=== PATIENT | female | born 1990 ===

== ENCOUNTER 2021-04-26 15:00 | Inpatient (IN) | payer OTHER ==
[~2021-04-26] VITALS: Ht 170.2 cm; Wt 83.0 kg
[2021-05-09] MEDS ORDERED: PRENATAL CAPLE1 EAC1 PO (02:51)
[2021-05-09] MEDS ORDERED: IRON325 MG PO (02:51)
[2021-05-09] MEDS ORDERED: INTEGRA PLUS C1 EACH (15:08)
[2021-05-09] MEDS ORDERED: CONCEPT DHA CA1 EACH (15:08)
== END 2021-05-11 12:35 | disposition home or self-care (01) | DRG 807 ==
LOC: OB/GYN 05-09 02:06 → LDR 05-09 02:06 → OB/GYN 05-09 09:01
PROVIDERS: ADMIT Obstetrics & Gynecology; ATTEND Obstetrics & Gynecology
PROC: 10E0XZZ Delivery of Products of Conception, External Approach (ICD-10-PCS; principal; 2021-05-09)
PROC: 10907ZC Drainage of Amniotic Fluid, Therapeutic from Products of Conception, Via Natural or Artificial Opening (ICD-10-PCS; 2021-05-09)
PROC: 3E033VJ Introduction of Other Hormone into Peripheral Vein, Percutaneous Approach (ICD-10-PCS; 2021-05-09)
PROC: 4A1HXFZ Monitoring of Products of Conception, Cardiac Rhythm, External Approach (ICD-10-PCS; 2021-05-09)
DX: O99.824 Streptococcus B carrier state complicating childbirth (principal); Z37.0 Single live birth; Z3A.38 38 weeks gestation of pregnancy; Z20.822 Contact with and (suspected) exposure to COVID-19

== ENCOUNTER 2021-05-01 13:46 | Outpatient (CLI) | payer OTHER | END 2021-05-01 13:53 | disposition home or self-care (01) | LOC: NST 13:46 | PROVIDERS: ATTEND Obstetrics & Gynecology | DX: Z34.83 Encounter for supervision of other normal pregnancy, third trimester (principal) ==